=== PATIENT | male | born 1945 | race Caucasian/White ===

== ENCOUNTER 2017-05-18 07:49 | Inpatient (IN) | payer MEDICARE, MEDICAID ==
[~2017-05-18] VITALS: Ht 167.6 cm; Wt 84.4 kg
[~2017-05-18 07:49] MED LIST: ALLO100T PO; ASPI-1159 PO; ATOR10TA69 PO; FURO-151 PO; GABA-533 PO; HUM10VIA8 SQ; KETO5DRO80 LEFTEYE; LORA10TA7 PO; OMEP20TA2 PO; POLY10DR3 EACHEYE; SITA50TA3 PO; SPIR25TA PO; TAMS0.4C31 PO; XAR15 PO
[2017-05-18] MEDS ORDERED: IPRATROPIUM BROMIDE (0.02%) 0.5MG/2.5ML NEB HHN STA (08:38)
[2017-05-18] MEDS ORDERED: ALBUTEROL (0.083%) 2.5MG/3ML NEB HHN STA (08:38)
[2017-05-18 08:53] LABS: BASOPHILS % 0.7 % (0.0-2.0); EOSINOPHILS % 8.7 % (0.0-5.0); HEMOGLOBIN. 13.4 g/dL (14.0-18.0); LYMPHOCYTES % 14.8 % (20.0-50.0); MEAN CORPUSCULAR HEMOGLOBIN 29.7 pg (28.0-32.0); MEAN CORPUSCULAR VOLUME 90.9 fL (80.0-94.0); MEAN PLATELET VOLUME 9.2 fl (7.4-10.4); MONOCYTES % 6.6 % (2.0-8.0); NEUTROPHILS % 69.2 % (40.0-76.0); PLATELET 247 x1000/uL (130-400); RED BLOOD CELL COUNT 4.51 mill/uL (4.7-6.1)
[2017-05-18 09:03] LABS: INR 1.1; PARTIAL THROMBOPLASTIN TIME 29.2 sec (23.4-31.0); PROTHROMBIN TIME 11.8 sec (9.4-11.6)
[2017-05-18 09:11] LABS: CHLORIDE 106 mEq/L (98-107)
[2017-05-18] MEDS ORDERED: FUROSEMIDE 40MG/4ML VIAL IVP ONE (09:30)
[2017-05-18 12:00] VITALS: BP 151/85
[2017-05-18] MEDS ORDERED: proair PO (12:35)
[2017-05-18] MEDS ORDERED: CARV6.2548 PO (12:43)
[2017-05-18] MEDS ORDERED: DEXTROSE 50% WATER 50ML SYRINGE IV PRN (14:00)
[2017-05-18] MEDS: LORATADINE 10MG TABLET PO SCH (14:32)
[2017-05-18] MEDS: SPIRONOLACTONE 25MG TABLET PO SCH (14:33)
[2017-05-18] MEDS: TAMSULOSIN HCL 0.4MG SR CAPSULE PO SCH (14:33)
[2017-05-18] MEDS: GABAPENTIN 400MG CAPSULE PO SCH ×2 (14:33→18:30)
[2017-05-18] MEDS: CARVEDILOL 6.25 MG TABLET PO SCH (14:34)
[2017-05-18] MEDS: ASPIRIN 81MG EC TABLET PO SCH (14:34)
[2017-05-18] MEDS: BLOOD SUGAR DIAGNOSTIC STRIP TEST SCH ×3 (14:35→20:23)
[2017-05-18] MEDS: POLYMYXIN B SULFATE/TMP 10ML BOTTLE EACHEYE SCH ×2 (15:00→21:00)
[2017-05-18] MEDS: ALLOPURINOL 100 MG TABLET PO SCH (15:22)
[2017-05-18] MEDS: INSULIN LISPRO 100 UNITS/ML SUBCUT SCH ×3 (15:24→21:22)
[2017-05-18 16:00] VITALS: BP 136/78
[2017-05-18] MEDS: INS NPH/REG HM 70-30 100 UNITS/ML 10ML VIAL (HUMULIN 70-30) SUBCUT SCH (17:00)
[2017-05-18] MEDS: KETOROLAC TROMETHAMINE 0.4% OPHTH 5ML LEFTEYE SCH (18:30)
[2017-05-18 20:00] VITALS: BP 165/91
[2017-05-18] MEDS ORDERED: ATORVASTATIN CALCIUM 10MG TABLET PO SCH (21:00)
[2017-05-19] VITALS: BP 142/83
[2017-05-19 04:00] VITALS: BP 130/70
[2017-05-19] MEDS: BLOOD SUGAR DIAGNOSTIC STRIP TEST SCH ×3 (06:26→16:43)
[2017-05-19] MEDS: INSULIN LISPRO 100 UNITS/ML SUBCUT SCH ×3 (06:31→17:46)
[2017-05-19 08:00] VITALS: BP 144/78
[2017-05-19] MEDS: POLYMYXIN B SULFATE/TMP 10ML BOTTLE EACHEYE SCH ×3 (09:00→17:00)
[2017-05-19] MEDS: KETOROLAC TROMETHAMINE 0.4% OPHTH 5ML LEFTEYE SCH ×2 (09:24→17:25)
[2017-05-19] MEDS: CARVEDILOL 6.25 MG TABLET PO SCH (09:24)
[2017-05-19] MEDS: TAMSULOSIN HCL 0.4MG SR CAPSULE PO SCH (09:24)
[2017-05-19] MEDS: GABAPENTIN 400MG CAPSULE PO SCH ×3 (09:24→17:25)
[2017-05-19] MEDS: ALLOPURINOL 100 MG TABLET PO SCH (09:25)
[2017-05-19] MEDS: LORATADINE 10MG TABLET PO SCH (09:25)
[2017-05-19] MEDS: SPIRONOLACTONE 25MG TABLET PO SCH (09:25)
[2017-05-19] MEDS: ASPIRIN 81MG EC TABLET PO SCH (09:25)
[2017-05-19] MEDS ORDERED: ONDANSETRON HCL 4MG/2ML VIAL IV PRN (10:15)
[2017-05-19 12:00] VITALS: BP 150/86
[2017-05-19 16:00] VITALS: BP 153/87
[2017-05-19 16:15] LABS: BASOPHILS % 0.9 % (0.0-2.0); EOSINOPHILS % 11.8 % (0.0-5.0); HEMATOCRIT. 38.1 % (42.0-52.0); HEMOGLOBIN. 12.8 g/dL (14.0-18.0); MEAN CORPUSCULAR HEMOGLOBIN 30.4 pg (28.0-32.0); MEAN CORPUSCULAR VOLUME 90.6 fL (80.0-94.0); MEAN PLATELET VOLUME 9.4 fl (7.4-10.4); MONOCYTES % 8.2 % (2.0-8.0); NEUTROPHILS % 58.1 % (40.0-76.0); PLATELET 241 x1000/uL (130-400); RED BLOOD CELL COUNT 4.21 mill/uL (4.7-6.1); RED CELL DISTRIBUTION WIDTH 14.9 % (11.6-14.6)
[2017-05-19 16:34] LABS: TROPONIN I 0.11 ng/mL (0.00-0.04)
[2017-05-19] MEDS ORDERED: CLONIDINE 0.1MG TABLET PO PRN (17:00)
[2017-05-19 17:12] VITALS: BP 133/79
[2017-05-19] MEDS: INS NPH/REG HM 70-30 100 UNITS/ML 10ML VIAL (HUMULIN 70-30) SUBCUT SCH (17:34)
== END 2017-05-19 18:15 | disposition home or self-care (01) | DRG 682 ==
LOC: ER 08:01 → 5WST 09:27 → EDBEDREQ 09:30 → ENRESERV 10:15
PROVIDERS: ADMIT Internal Medicine; ATTEND Internal Medicine
DX: N17.9 Acute kidney failure, unspecified (principal); I50.43 Acute on chronic combined systolic (congestive) and diastolic (congestive) heart failure; E11.40 Type 2 diabetes mellitus with diabetic neuropathy, unspecified; E11.65 Type 2 diabetes mellitus with hyperglycemia; I16.0 Hypertensive urgency; I11.0 Hypertensive heart disease with heart failure; I48.91 Unspecified atrial fibrillation; Z79.899 Other long term (current) drug therapy; Z79.82 Long term (current) use of aspirin; Z79.4 Long term (current) use of insulin
CPT/HCPCS: 36415; 71045; 80048; 80053; 82962; 83605; 83690; 83880; 84484; 85025; 85610; 85730; 87040; 93005; 96374; 99291; J1815; J1940; J2405

== ENCOUNTER 2018-12-01 22:08 | Emergency (ER) | payer MEDICARE, MEDICAID ==
[~2018-12-01] VITALS: Ht 167.6 cm; Wt 82.0 kg
[~2018-12-01 22:08] MED LIST changes: -ASPI-1159 PO; +ASPI-1393 PO; +CARV6.2548 PO; -XAR15 PO; +proair PO
[2018-12-01] MEDS ORDERED: SODIUM CHLORIDE 0.9% 500 ML IV ONE (22:31)
[2018-12-01] MEDS ORDERED: ACETAMINOPHEN 325MG TABLET PO STA (22:31)
[2018-12-01] MEDS ORDERED: ONDANSETRON HCL 4MG/2ML INJ IV STA (22:31)
[2018-12-01] MEDS ORDERED: VANCOMYCIN 1 G PREMIX 200 ML IV ONE (22:45)
[2018-12-01] MEDS ORDERED: PIPERACILLIN/TAZ 3.375G PREMIX 50 ML IV ONE (22:45)
[2018-12-01 23:18] LABS: BASOPHILS % 0.5 % (0.0-2.0); EOSINOPHILS % 11.2 % (0.0-5.0); HEMATOCRIT. 30.9 % (42.0-52.0); HEMOGLOBIN. 10.5 g/dL (14.0-18.0); LYMPHOCYTES % 14.9 % (20.0-50.0); MEAN CORPUSCULAR HEMOGLOBIN 30.7 pg (28.0-32.0); MEAN CORPUSCULAR VOLUME 90.3 fL (80.0-94.0); MEAN PLATELET VOLUME 8.1 fl (7.4-10.4); MONOCYTES % 8.3 % (2.0-8.0); NEUTROPHILS % 65.1 % (40.0-76.0); PLATELET 286 x1000/uL (130-400); RED BLOOD CELL COUNT 3.42 mill/uL (4.7-6.1); RED CELL DISTRIBUTION WIDTH 15.2 % (11.6-14.6)
[2018-12-01 23:20] LABS: CHLORIDE 98 mEq/L (98-107)
[2018-12-01 23:24] LABS: ETHANOL BLOOD < 10 mg/dL
[2018-12-01 23:26] LABS: INR 1.1; PROTHROMBIN TIME 11.5 sec (9.6-11.0)
[2018-12-01] MEDS ORDERED: POTASSIUM CHLORIDE 20MEQ TABLET SR PO ONE (23:30)
[2018-12-02 13:27] VITALS: BP 118/65
== END 2018-12-02 14:35 | disposition home or self-care (01) ==
LOC: ER 22:08 → ENRESERV 23:31 → CANRESERV 23:31 → EDBEDREQ 23:37 → EDBEDREQTM 23:37 → ENRESERV 12-02 12:50 → CANRESERV 12-02 12:50 → CANBEDREQ 12-02 13:31 → ER 12-02 14:35
DX: R53.1 Weakness (principal); R25.1 Tremor, unspecified; E11.22 Type 2 diabetes mellitus with diabetic chronic kidney disease; I12.0 Hypertensive chronic kidney disease with stage 5 chronic kidney disease or end stage renal disease; N18.6 End stage renal disease; J45.909 Unspecified asthma, uncomplicated; Z99.2 Dependence on renal dialysis; Z79.4 Long term (current) use of insulin; Z79.899 Other long term (current) drug therapy; Z98.890 Other specified postprocedural states
CPT/HCPCS: 36415; 71045; 80053; 80320; 82962; 83605; 83690; 83880; 84145; 84484; 85025; 85610; 87040; 93005; 96365; 96375; 99284; J2405; J2543; J3370; J7040; G0480